=== PATIENT | female | born 1980 | race Two or more races ===

== ENCOUNTER 2018-11-19 18:40 | Emergency (ER) | payer BC, OTHER ==
[~2018-11-19] VITALS: Ht 152.4 cm; Wt 63.5 kg
[2018-11-19 19:01] VITALS: BP 146/100
== END 2018-11-19 21:00 | disposition left against medical advice (07) ==
LOC: ER 18:45
DX: J02.9 Acute pharyngitis, unspecified (principal); R05 Cough; Z53.21 Procedure and treatment not carried out due to patient leaving prior to being seen by health care provider
CPT/HCPCS: 82962

== ENCOUNTER → 2018-11-21 | Outpatient (CLI) | payer OTHER ==
[2018-11-21 10:42] LABS: Basophils # (auto) 0 uL; Basophils % (auto) 0.8 % (0.0-2.0); Eosinophils # (auto) 0.1 uL; Eosinophils % (auto) 2.2 % (0.0-7.0); Hematocrit 40.5 % (36.0-46.0); Hemoglobin 13.7 g/dL (12.2-16.2); Lymphocytes # (auto) 2.3 uL; Lymphocytes % (auto) 35.2 % (10.0-50.0); Mean Corpuscular Hemoglobin 30.4 pg (28.0-32.0); Mean Corpuscular Hgb Conc. 33.9 g/dL (32.0-36.0); Mean Corpuscular Volume 89.6 fL (80.0-100.0); Monocytes # (auto) 0.4 uL; Monocytes % (auto) 6.6 % (0.0-12.0); Neutrophils # (auto) 3.5 uL; Neutrophils % (auto) 55.2 % (37.0-80.0); Nucleated Red Blood Cells % 0.1 %; Platelet Count (auto) 272 10^3/uL (140-450); Red Blood Cells 4.52 10^6/uL (4.0-5.20); White Blood Cell 6.4 10^3/uL (4.4-10.8)
[2018-11-21 11:43] LABS: Albumin 3.8 g/dL (3.4-5.0); Calcium 8.9 mg/dL (8.5-10.1); Potassium 4.1 mmol/L (3.5-5.1)
[2018-11-21 11:47] LABS: Bilirubin, Total 0.6 mg/dL (0.2-1.0); Total Protein 7.3 g/dL (6.4-8.2)
== END | disposition home or self-care (01) ==
LOC: LAB 10:21
PROVIDERS: ATTEND Family Medicine
DX: Z00.00 Encounter for general adult medical examination without abnormal findings (principal); R35.8 Other polyuria
CPT/HCPCS: 36415; 80053; 80061; 82607; 83036; 84443; 85025

== ENCOUNTER → 2022-03-22 | Outpatient (CLI) | payer BC ==
[2022-03-22 14:19] LABS: Prolactin 4.58 ng/mL (2.8-29.2)
[2022-03-22 14:20] LABS: Follicle Stimulating Hormone 7.57 IU/L (SEE BELOW); Leuteinizing Hormone 1.4 IU/L
== END | disposition home or self-care (01) ==
LOC: LAB 13:31
PROVIDERS: ATTEND Obstetrics & Gynecology Obstetrics
DX: N93.9 Abnormal uterine and vaginal bleeding, unspecified (principal)
CPT/HCPCS: 36415; 82670; 83001; 83002; 84144; 84146; 84403